=== PATIENT | female | born 1945 | race Caucasian/White ===

== ENCOUNTER 2018-06-21 06:33 | Day surgery (SDC) | payer OTHER ==
[2018-06-20 16:30] LABS: Absolute Lymphocytes (CBC) 1.4 K/uL (0.7-4.9); Absolute Monocytes 0.6 K/uL (0.1-1.3); Absolute Neutrophil 3.7 K/uL (1.8-8.0); Basophils % 0.9 % (0-1.3); Eosinophils % 2.1 % (0-4.4); Hematocrit 40.1 % (36.0-45.0); Lymphocytes % 24.1 % (15.3-44.8); MPV 8.8 fL (7.6-11.3); Monocytes % 9.7 % (3.3-12.3); RBC Red Blood Cell Count 4.19 M/uL (3.86-4.86)
[2018-06-20 16:41] LABS: Potassium 4.3 mmol/L (3.5-5.1)
[2018-06-20 16:48] LABS: Bilirubin Direct 0.1 mg/dL (0-0.2); Bilirubin Total 0.3 mg/dL (0.2-1.0); Protein, Total 7.3 g/dL (6.4-8.2)
--- OUTSIDE RECORDS SUMMARY | 2018-06-21 06:36 | XMS REPORT ---
:1945 [facility] Address [address] [place] [address] Dr. Marie [address] [place] [id number] Care Team Providers Name Role Phone Unavailable Unavailable Unavailable Problems This patient has no known problems. Allergies, Adverse Reactions, Alerts This patient has no known allergies or adverse reactions. Medications This patient has no known medications.
[2018-06-21] MEDS ORDERED: CEFOXITIN/SWI 1gm 1 GM/10 ML SYR ONE (06:59)
[2018-06-21] MEDS ORDERED: Ringers Lactate 1,000 ML IV ONE ×2 (06:59→09:29)
[2018-06-21] MEDS ORDERED: BUPIVACAINE 0.5% PF 10 ML VIAL ONE (07:09)
[2018-06-21] MEDS ORDERED: FENTANYL CITR 100 MCG/2 ML ONE (07:16)
[2018-06-21] MEDS ORDERED: MIDAZOLAM HCL 2 MG/2 ML INJ ONE (07:16)
[2018-06-21] MEDS ORDERED: ROCURONIUM 50 MG/5 ML VIAL IV ONE (07:16)
[2018-06-21] MEDS ORDERED: LIDOCAINE 1% MPF 5 ML VIAL ONE (07:16)
[2018-06-21] MEDS ORDERED: PROPOFOL 200 MG/20 ML VIAL IV ONE (07:16)
[2018-06-21] MEDS ORDERED: EPHEDRINE SULF 50 MG/ML VIAL ONE (08:14)
[2018-06-21] MEDS ORDERED: NS 0.9% VIAL 10 ML ONE (08:14)
[2018-06-21] MEDS ORDERED: GLYCOPYRROLATE 0.2 MG/ML SYR ONE ×2 (08:29)
[2018-06-21] MEDS ORDERED: ONDANSETRON 4 MG/2 ML VIAL ONE ×2 (08:29→10:09)
[2018-06-21] MEDS ORDERED: NEOSTIGMINE 1 MG/ML -10 ML VIAL ONE (08:29)
[2018-06-21] MEDS: MEPERIDINE HCL 50 MG/ML AMP ONE ×2 (08:39→08:43)
[2018-06-21] MEDS ORDERED: MEPERIDINE HCL 25 MG/0.5 ML ONE (09:02)
[2018-06-21] MEDS: MORPHINE 4 MG/ML SYR ONE ×2 (09:10→09:19)
[2018-06-21] MEDS ORDERED: MORPHINE 4 MG/ML SYR ONE (09:43)
[2018-06-21] MEDS ORDERED: HYDROCODONE/APAP 7.5/325 MG TAB ONE (10:07)
[2018-06-21] MEDS ORDERED: PROMETHAZINE 25 MG/ML VIAL ONE (10:12)
--- NOTE | 2018-06-21 16:17 | DS ---
Date of Discharge: 06/21/2018 Discharge Note: The patient will go to Day Surgery and home when stable. Disposition: Home. Condition: Stable. Discharge Instructions: Resume home medications and diet. Activity as tolerated. No heavy lifting. Remove outer dressing in 2 days. Shower. Keep wound clean and dry. Keep Steri-Strips on at all t imes. Tylenol No. 3 one tablet p.o. q.4 p.r.n. pain. Follow up in my office in approximately 10 day s. Call for appointment. JOSE ANGEL/BYRON Voice ID: [id number] Report ID: [id number]
--- NOTE | 2018-06-21 16:17 | OP ---
Date of Procedure: 06/21/2018 Surgeon: Bran Segura MD City Driver: YANN Harris. Preoperative Diagnosis: Symptomatic cholelithiasis. Postoperative Diagnosis: Symptomatic cholelithiasis. Procedure Performed: Laparoscopic cholecystectomy. Estimated Blood Loss: Minimal. Specimen: Gallbladder. Finding: As above. Anesthesia: General. Complications: None. Disposition: The patient tolerated the procedure in stable condition and taken to the Recovery in go od general condition. Procedure In Detail: The patient was brought to the OR and placed in supine position. General anest hesia was begun. The patient was prepped and draped in sterile fashion. Marcaine 0.5% was infiltrat ed locally. Then 15-blade was used to make an epigastric incision just to the right of midline as th e patient had previous large midline scar and I anticipated adhesions, so in order to avoid it we put a 12 mm trocar in the epigastrium just to the right of midline. After the subcutaneous tissue was d ivided, fascia was identified and divided, #1 Vicryl stay suture was placed. Peritoneal cavity was e ntered with sharp and blunt dissection, and 12 mm trocar was placed into the peritoneal cavity under direct vision, and indeed there were omental adhesions at the midline. Then a lower trocar was place d in the right paramedian region and then two 5 mm were placed in the right subcostal region. Laparo scopy revealed chronic inflammation of the gallbladder with omental adhesions, these were taken down with sharp and blunt dissection. Bleeding controlled with cautery. The fundus retracted superiorly. Infundibulum was identified and retracted inferolaterally. Cystic duct and cystic artery were marylou rly identified with blunt dissection. Clips placed. Both structures were divided. Cautery was used to remove the gallbladder from the liver bed. Bleeding at the liver bed was controlled with cautery . The gallbladder retrieved through the EndoCatch bag, and then sent to Pathology. Then pneumoperit oneum was reestablished and right upper quadrant examined. No evidence of bleeding or bile leakage a ppreciated. Subsequently, all trocars were removed under direct vision. Stay sutures were tied to e ach other to approximate the fascial defect. Subcutaneous wounds were irrigated. Bleeding controlle d cautery. 3-0 chromic used to approximate subcutaneous tissue and close the skin. Sterile dressing was applied. The patient was awakened and taken to Recovery in good general condition. JOSE ANGEL/BYRON Voice ID: [id number] Report ID: [id number]
== END 2018-06-21 11:12 | disposition home or self-care (01) ==
LOC: OR 06:33
PROVIDERS: ATTEND Surgery
PROC: 0FT44ZZ Resection of Gallbladder, Percutaneous Endoscopic Approach (ICD-10-PCS; principal; 2018-06-21 07:30)
DX: K80.10 Calculus of gallbladder with chronic cholecystitis without obstruction (principal); K66.0 Peritoneal adhesions (postprocedural) (postinfection); I10 Essential (primary) hypertension; E07.9 Disorder of thyroid, unspecified; Z79.899 Other long term (current) drug therapy; Z79.82 Long term (current) use of aspirin
CPT/HCPCS: 47562; 93005; 85025; 80048; 36415; 82150; 80076; 88304; J2704; J2710; J2550; J2250; J3010; J2175 ×2; J2405

== ENCOUNTER 2018-08-29 09:32 | Emergency (ER) | payer OTHER ==
[2018-08-29 10:30] LABS: Absolute Monocytes 0.5 K/uL (0.1-1.3); Absolute Neutrophil 4.2 K/uL (1.8-8.0); Basophils % 0.6 % (0-1.3); Eosinophils % 2.1 % (0-4.4); Hematocrit 40.2 % (36.0-45.0); Lymphocytes % 17.5 % (15.3-44.8); MPV 8.2 fL (7.6-11.3); Monocytes % 8.3 % (3.3-12.3); RBC Red Blood Cell Count 4.22 M/uL (3.86-4.86)
[2018-08-29 10:31] LABS: Protime INR 1.01
[2018-08-29 10:47] LABS: ALT/SGPT 130 U/L (12-78); AST/SGOT 104 U/L (15-37); Albumin 3.7 g/dL (3.4-5.0); Alkaline Phosphatase 80 U/L (45-117); BUN Blood Urea Nitrogen 16 mg/dL (7-18); Bicarbonate 28 mmol/L (21-32); Bilirubin Direct 0.2 mg/dL (0-0.2); Bilirubin Total 0.8 mg/dL (0.2-1.0); Glucose Level 91 mg/dL (74-106); Magnesium 2.3 mg/dL (1.8-2.4); NT PRO-BNP 59 pg/mL (<450); Potassium 4.5 mmol/L (3.5-5.1); Protein, Total 7.2 g/dL (6.4-8.2); Sodium Level 139 mmol/L (136-145); Troponin (Emerg Dept Use Only) < 0.02 ng/mL (0.0-0.045)
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
--- NOTE | 2018-08-29 14:30 | EKG ---
Test Date: 2018-08-29 Test Time: 09:42:51 Door Core Assembler: EFREM MEASUREMENT RESULTS: Intervals: Rate: 62 TN: 212 QRSD: 96 QT: 406 QTc: 412 [place]: P: 74 TN: 212 QRS: -4 T: 45 INTERPRETIVE STATEMENTS: Sinus rhythm with 1st degree AV block Otherwise normal ECG Compared to ECG 06/20/2018 15:32:55 No significant changes Electronically Signed On 08-29-18 14:28:51 CDT by Omid Davis
--- OUTSIDE RECORDS SUMMARY | 2018-08-29 14:33 | XMS REPORT ---
:1945 [facility] [address] [place] [address] Dr. [address] [place] [id number] Care Team Providers Name Role Phone Unavailable Unavailable Unavailable Problems This patient has no known problems. Allergies, Adverse Reactions, Alerts This patient has no known allergies or adverse reactions. Medications This patient has no known medications.
--- NOTE | 2018-08-29 20:36 | RAD REPORT ---
EXAM DESCRIPTION: RAD - Chest Single View - 08/29/2018 11:48 am CLINICAL HISTORY: CHEST PAIN Chest pain. COMPARISON: Chest Pa And Lat (2 Views) dated 06/13/2018 FINDINGS: Portable technique limits examination quality. The lungs are grossly clear. The heart is normal in size. No displaced fractures. IMPRESSION: No acute intrathoracic process suspected.
== END 2018-08-29 11:51 | disposition home or self-care (01) ==
LOC: ER 09:32
DX: R07.9 Chest pain, unspecified (principal); I10 Essential (primary) hypertension; E03.9 Hypothyroidism, unspecified
CPT/HCPCS: 36415; 71045; 80048; 80076; 83735; 83880; 84484; 85025; 85610; 93005; 99285